=== PATIENT | female | born 1995 | race African-American/Black ===

== ENCOUNTER 2017-08-19 14:45 | Emergency (ER) | payer SELFPAY ==
[2017-08-19] MEDS ORDERED: HYDROcodone/Acetaminophen 10/325 mg Tablet ONE (15:45)
== END 2017-08-19 15:39 | disposition home or self-care (01) ==
LOC: ERS 14:45
DX: N61.0 Mastitis without abscess (principal); F41.9 Anxiety disorder, unspecified; Z87.891 Personal history of nicotine dependence
CPT/HCPCS: 99283

== ENCOUNTER 2018-01-08 06:04 | Day surgery (SDC) | payer SELFPAY ==
[2018-01-08] MEDS ORDERED: Morphine 4 MG/ML VIAL ONE ×3 (06:21→12:13)
[2018-01-08] MEDS ORDERED: Lorazepam 2 MG/ML VIAL ONE (06:21)
--- NOTE | 2018-01-08 07:50 | CT ---
CT PELVIS WITH CONTRAST: DATE: 01/08/18. HISTORY: A 22-year-old female with 4-5 days of rectal pain and swelling. TECHNIQUE: IV contrast: 100 mL of Isovue 370. Oral contrast: not administered. Single venous phase scan performed through the pelvis. Coronal and sagittal reconstructions. FINDINGS: There is an approximately 3 x 2 x 1.5 cm moderately low attenuation lesion at midline in the region o f the anus, with rim enhancement and circumferential thickening of surrounding tissues. There is a small amount of free fluid in the cul-de-sac, which is probably physiologic in a female pa tient of this age. No major osseous abnormality. Unremarkable urinary bladder and uterus. A 2 cm e nhancing follicle in the right ovary. No iliac chain lymphadenopathy. IMPRESSION: Evidence for perianal abscess. POS: [facility]
[2018-01-08] MEDS ORDERED: Piperacillin/Tazobactam 3.375 GM VIAL ONE (08:30)
--- NOTE | 2018-01-08 08:35 | HP ---
CHIEF COMPLAINT: Severe anal pain. HISTORY: The patient is a 22-year-old female with a 5 day history of perianal pain. No drainage. L ast bowel movement was this morning. She has not passed any blood, no previous episodes. Denies con stipation. PAST MEDICAL HISTORY: Morbid obesity. PAST SURGICAL HISTORY: She had fluid drained from her lung after pneumonia. MEDICATIONS: None. ALLERGIES: No known drug allergies. SOCIAL HISTORY: She is single. She works at [employer]. No tobacco or alcohol. No known drug allergies. FAMILY HISTORY: Hypertension. PHYSICAL EXAMINATION: VITAL SIGNS: Temperature 98, pulse 102, blood pressure 124/111. GENERAL: Morbidly obese female in severe pain. HEENT: Unremarkable. LUNGS: Clear. HEART: Regular rate and rhythm. ABDOMEN: Morbidly obese, soft and nontender. PERIANAL EXAM: Very difficult exam. She is guarding quite a bit. She does not want me to touch her , but I was able to examine down around her anus and posterior and to the left there is about a 4 cm soft tissue swelling that is extremely tender. She had a CT scan showing abscess there. ASSESSMENT: Perirectal abscess. PLAN: I&D. CONSENT: I have discussed the planned procedure as well as risk of bleeding, infection, postoperativ e anal fistula, injury to sphincter mechanism with incontinence. She understands and gives informed consent.
[2018-01-08 08:42] LABS: #Eosinphils 0.1 thou/uL (0.0-0.7); #Monocytes 0.6 thou/uL (0.11-0.59); #Neutrophils 6.4 thou/uL (1.40-6.50); %Basophils 0.4 % (0.0-1.0); %Monocytes 6.5 % (0.0-10.0); %Neutrophils 70.2 % (42.0-75.0); Hemoglobin 11.4 g/dL (12.0-16.0); Mean Corpuscular HGB CONC 32.6 g/dL (32.0-36.0); Mean Corpuscular Hemoglobin 24.8 pg (27.0-31.0); Mean Corpuscular Volume 76.1 fl (81.0-99.0); Mean Platelet Volume 7.6 fL (7.4-10.4); Platelet Count 446 thou/uL (130-400); Red Blood Cell (RBC) Count 4.61 mill/uL (4.20-5.40); White Blood Cell (WBC) Count 9.1 thou/uL (4.8-10.8)
[2018-01-08 08:48] LABS: BHCG - Serum Negative (NEGATIVE); Pregs Control Background? CLEAR/WHITE (CLR/WHITE); Pregs Control Bar Appear? YES (CONTROL BAR)
[2018-01-08] MEDS ORDERED: Sodium Chloride 0.9% 1,000 ML IV SCH (13:30)
[2018-01-08] MEDS ORDERED: Piperacillin/Tazobactam 3.375 GM in Sodium Chloride 0.9% 100 ML IVPB SCH (13:30)
[2018-01-08] MEDS ORDERED: Bupivacaine HCl 0.5%/Epinephrine 1:200,000/PF 30 ml Vial ONE (14:24)
[2018-01-08] MEDS ORDERED: Bacitracin Zinc Ointment 30 gm TUBE ONE (14:24)
[2018-01-08] MEDS ORDERED: Lidocaine 2% 10 ML INJ ONE (14:24)
[2018-01-08] MEDS ORDERED: Ondansetron HCl/PF 4 MG/2 ML Vial ONE (14:27)
[2018-01-08] MEDS ORDERED: Fentanyl 100 MCG/2 ML VIAL ONE ×2 (14:27→14:32)
[2018-01-08] MEDS ORDERED: Midazolam HCl 2 mg/2 ml Vial ONE (14:41)
[2018-01-08] MEDS ORDERED: SUGAMMADEX SODIUM 500 MG/5 ML VIAL ONE (15:31)
--- NOTE | 2018-01-08 15:58 | OP ---
DATE OF PROCEDURE: 01/08/2018 PREOPERATIVE DIAGNOSIS: Perianal abscess. SURGEON: Koko Oseguera M.D. PROCEDURE PERFORMED: Incision and drainage. INDICATIONS: The patient is a 22-year-old female who has a 5-day history of perianal pain. She is m orbidly obese and would not allow examination. A CT scan showed a perianal abscess. FINDINGS: A 4 cm left posterior anus perianal abscess. PROCEDURE IN DETAIL: After informed consent was obtained, the patient was taken to the operating patrice m and given general endotracheal anesthesia. She was placed in the prone position. Her buttock montrell ks were spread apart with tape. Her perianal region was prepped and draped in usual fashion. An ell iptical incision was performed releasing purulent fluid, which was sent for culture. The cavity was opened further and irrigated thoroughly with saline. Then, hemostasis achieved with electrocautery a nd was packed open with Betadine gauze and a sterile bandage on top, then local anesthesia 0.5% Mekhi ine with epinephrine was instilled perianal and missy-incisional, sterile bandage applied. The patien t tolerated the procedure well and was transferred to recovery in good condition.
== END 2018-01-08 17:20 | disposition home or self-care (01) ==
LOC: ERS 06:04 → SDC 11:50
PROVIDERS: ATTEND Specialist
PROC: 0D9Q0ZZ Drainage of Anus, Open Approach (ICD-10-PCS; principal; 2018-01-08)
DX: K61.0 Anal abscess (principal); E66.01 Morbid (severe) obesity due to excess calories
CPT/HCPCS: 36415; 72193; 84703; 85025; 87070; 87077; 87186; 87205; 96365; 96375; 96376; J0670; J2060; J2250; J2270; J2405; J2543; J3010; J7050

== ENCOUNTER 2018-09-25 04:53 | Emergency (ER) | payer SELFPAY ==
[2018-09-25] MEDS ORDERED: Ketorolac Tromethamine 60 MG/2 ML VIAL ONE (05:07)
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
== END 2018-09-25 06:10 | disposition home or self-care (01) ==
LOC: ERS 04:53
DX: S63.502A Unspecified sprain of left wrist, initial encounter (principal); F41.9 Anxiety disorder, unspecified; X50.1XXA Overexertion from prolonged static or awkward postures, initial encounter
CPT/HCPCS: 96372; J1885

== ENCOUNTER 2018-12-27 09:37 | Emergency (ER) | payer SELFPAY | END 2018-12-27 10:50 | disposition home or self-care (01) | LOC: ERS 09:37 | DX: B34.9 Viral infection, unspecified (principal); F41.9 Anxiety disorder, unspecified; F17.210 Nicotine dependence, cigarettes, uncomplicated | CPT/HCPCS: 87804; 99283 ==

== ENCOUNTER 2018-12-30 19:58 | Emergency (ER) | payer SELFPAY ==
[2018-12-30] MEDS ORDERED: Dexamethasone 10 MG/ML VIAL ONE (20:14)
[2018-12-30] MEDS ORDERED: Acetaminophen 500 MG TAB ONE (20:14)
== END 2018-12-30 20:58 | disposition home or self-care (01) ==
LOC: ERS 19:58
DX: J02.0 Streptococcal pharyngitis (principal); F17.210 Nicotine dependence, cigarettes, uncomplicated
CPT/HCPCS: 87430; 87804; 94640; J1100; J7620

== ENCOUNTER 2019-06-16 11:54 | Emergency (ER) | payer OTHER, SELFPAY ==
[2019-06-16] MEDS ORDERED: HYDROcodone/Acetaminophen 5/325 mg Tablet ONE (12:59)
--- NOTE | 2019-06-16 13:12 | RAD ---
LUMBAR SPINE 3 VIEWS: Date: 06/16/19 HISTORY: Back pain. FINDINGS: Lumbar vertebra maintain normal height and alignment. Disc spaces are preserved. No evidence of spond ylolisthesis or spondylolysis. IMPRESSION: Unremarkable lumbar spine. POS: [facility]
== END 2019-06-16 13:25 | disposition home or self-care (01) ==
LOC: ERS 11:54
DX: S39.012A Strain of muscle, fascia and tendon of lower back, initial encounter (principal); I10 Essential (primary) hypertension; F41.9 Anxiety disorder, unspecified; Z87.891 Personal history of nicotine dependence; V59.9XXA Occupant (driver) (passenger) of pick-up truck or van injured in unspecified traffic accident, initial encounter
CPT/HCPCS: 72100

== ENCOUNTER 2019-10-31 07:56 | Emergency (ER) | payer SELFPAY ==
[2019-10-31] MEDS ORDERED: Dexamethasone 10 MG/ML VIAL ONE (08:27)
[2019-10-31] MEDS ORDERED: Lidocaine 1% PF 5 ML VIAL ONE (08:28)
[2019-10-31] MEDS ORDERED: cefTRIAXone\\ROCEPHIN 1 GM VIAL ONE (08:28)
--- NOTE | 2019-10-31 08:57 | RAD ---
SINGLE VIEW OF THE CHEST: COMPARISON: 09/17/2016. HISTORY: Cough and congestion. FINDINGS: Single view of the chest shows a normal sized cardiomediastinal silhouette. There is no evidence of c onsolidation, mass, or pleural effusion. The bones are unremarkable. IMPRESSION: No evidence of acute cardiopulmonary disease. POS: [facility]
== END 2019-10-31 09:05 | disposition home or self-care (01) ==
LOC: ERS 07:56
DX: R05 Cough (principal); R06.2 Wheezing; I10 Essential (primary) hypertension; F41.9 Anxiety disorder, unspecified; Z87.891 Personal history of nicotine dependence
CPT/HCPCS: 71045; 87804; 94640; 96372; J0696; J1100; J2001; J7620

== ENCOUNTER 2020-01-30 18:09 | Emergency (ER) | payer OTHER, SELFPAY ==
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
[2020-01-30] MEDS ORDERED: Lorazepam 1 MG TAB ONE (19:09)
[2020-01-30] MEDS ORDERED: Ketorolac Tromethamine 30 MG/ML VIAL ONE (19:09)
== END 2020-01-30 19:50 | disposition home or self-care (01) ==
LOC: ERS 18:09
DX: M25.531 Pain in right wrist (principal); R07.9 Chest pain, unspecified; I10 Essential (primary) hypertension; F41.9 Anxiety disorder, unspecified; V89.2XXA Person injured in unspecified motor-vehicle accident, traffic, initial encounter
CPT/HCPCS: 71045; 96372; J1885

== ENCOUNTER 2023-07-13 11:29 | Emergency (ER) | payer SELFPAY ==
[2023-07-13 13:24] LABS: SARS-CoV-2 NAA Rapid Test Not Detected (NotDetected)
== END 2023-07-13 13:04 | disposition home or self-care (01) ==
LOC: ERS 11:29
DX: J02.0 Streptococcal pharyngitis (principal); I10 Essential (primary) hypertension; Z79.899 Other long term (current) drug therapy; Z20.822 Contact with and (suspected) exposure to COVID-19
CPT/HCPCS: 71045; 87430

== ENCOUNTER 2024-06-08 11:29 | Emergency (ER) | payer BC, SELFPAY ==
[2024-06-08 15:41] LABS: SARS-CoV-2 N1 Negative; SARS-CoV-2 N2 Negative; SARS-CoV-2 RNAse P1 Positive
== END 2024-06-08 13:27 | disposition home or self-care (01) ==
LOC: ERS 11:29
DX: J06.9 Acute upper respiratory infection, unspecified (principal); I10 Essential (primary) hypertension; Z76.0 Encounter for issue of repeat prescription
CPT/HCPCS: 87081; 87430; 87635; 99283

== ENCOUNTER 2024-07-28 17:50 | Emergency (ER) | payer BC ==
[2024-07-28] MEDS ORDERED: Ondansetron ODT 4 MG TAB ONE (19:11)
[2024-07-28] MEDS ORDERED: Ketorolac Tromethamine 30 MG (1 mL) VIAL ONE (19:11)
[2024-07-28 19:20] LABS: MONO NEGATIVE CONTROL ZONE White (Negative) (White); MONO POSITIVE CONTROL Pink Line (Positive) (PINK/RED); Mononucleosis NEGATIVE (NEGATIVE)
== END 2024-07-28 20:02 | disposition home or self-care (01) ==
LOC: ERS 17:50
DX: J18.9 Pneumonia, unspecified organism (principal); I10 Essential (primary) hypertension
CPT/HCPCS: 36415; 71045; 86308; 87428; 96372; J1885; Q0162

== ENCOUNTER 2024-08-02 14:14 | Emergency (ER) | payer BC ==
[2024-08-02] MEDS ORDERED: Ketorolac Tromethamine 30 MG (1 mL) VIAL ONE (14:43)
[2024-08-02] MEDS ORDERED: Ondansetron ODT 4 MG TAB ONE (14:44)
[2024-08-02 15:20] LABS: Hematocrit 37.3 % (36.0-47.0); Mean Corpuscular HGB CONC 32.2 g/dL (32.0-36.0); Mean Corpuscular Hemoglobin 23.7 pg (27.0-31.0); Mean Corpuscular Volume 73.6 fL (78.0-98.0); Mean Platelet Volume 9.9 fL (7.4-10.4); Platelet Count 256 10x3/uL (130-400); RBC Distribution Width 17.2 % (11.5-14.5); Red Blood Cell (RBC) Count 5.07 mill/uL (4.20-5.40)
[2024-08-02 15:32] LABS: ALT (SGPT) 108 U/L (8-55); AST (SGOT) 87 U/L (5-34); Albumin 3.5 g/dL (3.5-5.0); Alkaline Phosphatase 105 U/L (40-110); Anion Gap 13 mmol/L (10-20); BUN (Urea Nitrogen) 6 mg/dL (7.0-18.7); Bilirubin, Total 0.4 mg/dL (0.2-1.2); Calc. Creatinine Clearance 0 mL/min (70-130); Calcium 8.7 mg/dL (7.8-10.44); Carbon Dioxide 24 mmol/L (22-29); Chloride 102 mmol/L (98-107); Estimated GFR 104; Globulin 3.7 g/dL (2.4-3.5); Glucose 101 mg/dL (70-105); Potassium 3.5 mmol/L (3.5-5.1); Protein, Total 7.2 g/dL (6.0-8.3); Sodium 135 mmol/L (136-145)
[2024-08-02 15:52] LABS: Band 6 % (5-11); Eosinophils 3 % (0-10); Large Platelets 10.8 % (0-5); Lymphocytes 48 % (21-51); Microcytosis SLIGHT = 6-15 cells HPF (0-5); Monocytes 9 % (0-10); Neutrophil 24 % (42-75); Platelet Adequacy Comment Platelets Normal; Polychromasia SLIGHT = 2-3 cells HPF (0-2); Reactive Lymphocytes 8 % (0-10); Smudge Cells 16.7 %
[2024-08-02] MEDS ORDERED: Azithromycin 250 MG TAB ONE (17:11)
[2024-08-02] MEDS ORDERED: Cyclobenzaprine 10 MG TAB ONE (17:30)
== END 2024-08-02 17:37 | disposition home or self-care (01) ==
LOC: ERS 14:14
DX: M79.10 Myalgia, unspecified site (principal); I10 Essential (primary) hypertension; F17.290 Nicotine dependence, other tobacco product, uncomplicated; Z79.899 Other long term (current) drug therapy
CPT/HCPCS: 36415; 71045; 80053; 85025; 96372; J1885; Q0162